=== PATIENT | female | born 1940 | race Caucasian/White ===

== ENCOUNTER 2021-09-21 09:28 | Inpatient (IN) | payer MEDICARE, SELFPAY ==
[2021-09-21] VITALS (85 sets, daily range): BP systolic 105–218; BP diastolic 53–117; PULSE 61–97; RESP 11–36; TEMP 35.8–37; O2SAT 88–96; BMI 19.0; BMI 19.1
--- NOTE | 2021-09-21 09:38 | XR_ITS ---
WS: [id number] CHEST XRAY TECHNIQUE: Portable chest. CLINICAL INFORMATION: chest pain COMPARISON: None. FINDINGS: Heart: Cardiomegaly. Aortic calcification. Lungs: Chronic emphysematous changes. No acute pulmonary infiltrates. Calcified granulomatous disease . Bones: Prior vertebroplasty changes in the mid thoracic spine. Osteopenia. XR/XR chest 1V portable [id number] IMPRESSION: 1. Cardiomegaly. Aortic calcification. 2. Chronic emphysematous changes. No acute pulmonary infiltrates. 3. Chronic granulomatous disease
--- NOTE | 2021-09-21 09:38 | ECG_ITS ---
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 Measurements Intervals [place] Rate: 67 P: 50 GA: 190 QRS: 26 QRSD: 114 T: 42 QT: 435 QTc: 460 Interpretive Statements SINUS RHYTHM INCOMPLETE RIGHT BUNDLE BRANCH BLOCK [90+ ms QRS DURATION, TERMINAL R IN V1/V2, 40+ ms S IN I/aVL/V4/V5/V6] MODERATE ST DEPRESSION [0.05+ mV ST DEPRESSION] Compared to ECG 09/21/2021 10:51:32 No significant changes Electronically Signed On 09-22-2021 9:17:41 CDT by Blaine Bradley M.D. [id number]
--- NOTE | 2021-09-21 09:51 | ED_ITS ---
HPI - Chest Pain General: Chief Complaint: Chest Pain Stated Complaint: chest pain / heaviness Time Seen by Provider: 09/21/21 09:38 Source: patient Mode of arrival: ambulatory History of Present Illness: 81-year-old female presents emergency room with complaint of chest discomfort and heaviness earlier today that resolved. She did not take any aspirin nitro prior to coming in now she is complaining of a headache. When I came to see her in the room she states her primary problem was a headache she refers to come in the frontal area a little bit more on the right than the left no recent trauma patient is on Eliquis and sotalol for atrial fibrillation no falls. She has a chronic cough which the used to think was related to lisinopril that persisted after the lisinopril was stopped she uses dxqs-ank-xemycqf cough cold remedies primarily Mentholatum cough drops. She denies use of any pseudoephedrine or phenylephrine products recently but does not use large amounts of caffeine. No difficulty with vision speech swallowing or gait Pertinent past history: other (Atrial fibrillation) Timing of current episode: constant Onset: during rest Pain location: substernal and left chest Pain radiation: none Quality: heaviness Relieving factors: nothing Associated symptoms: Deny abdominal pain, diaphoresis, dyspnea, fever(s), leg edema, nausea, palpitations, sense of impending doom, syncope or vomiting Treatment prior to arrival: none Review of Systems Const: Denies: fever(s) or diaphoresis ENMT: Denies: throat pain, ear or mastoid pain, nasal discharge or nasal congestion Card: Denies: palpitations or syncope Resp: Denies: dyspnea GI: Denies: abdominal pain, nausea or vomiting : Denies: flank pain, difficulty voiding, dysuria, urinary frequency or urinary urgency Skin/Breast: Denies: rash or pruritus PFS ED PFSH: Medical History Atrial fibrillation Hypertension Social History Smoking and tobacco status: never smoked Alcohol intake: never Physical Exam Const: COMMON NORMALS: no acute distress GENERAL APPEARANCE: cooperative and comfortable ORIENTATION/CONSCIOUSNESS: Yes awake, Yes oriented to person, Yes oriented to place and Yes oriented to time HENMT: COMMON NORMALS: normocephalic, atraumatic and hearing grossly normal bilaterally HEAD & SCALP: normocephalic and atraumatic Neck/C-Spine: COMMON NORMALS: no JVD Lymph: LYMPHATIC: no lymphadenopathy noted and no lymphedema noted Resp: COMMON NORMALS: normal respiratory effort, No retractions, No use of accessory muscles and clear to auscultation bilaterally AUSCULTATION: clear to auscultation bilaterally Cardio: COMMON NORMALS: no JVD, regular rate, regular rhythm and No murmurs present (Cardio) RATE: regular rate RHYTHM: regular rhythm GI: COMMON NORMALS: Soft to palpation and No hepatosplenomegaly present A USCULTATION: Yes normoactive bowel sounds PALPATION: Yes Soft to palpation, No Tenderness to palpation present (GI), No Guarding due to palpation present (GI) and Yes No hepatosplenomegaly present Extremity: COMMON NORMALS: normal to inspection, capillary refill normal, no clubbing, cyanosis or edema, no calf tenderness and no pedal edema Neuro: SENSORIUM/ORIENTATION: Yes oriented to person, Yes oriented to place and Yes oriented to time Skin: COMMON NORMALS: no rashes or lesions noted GENERAL SKIN EXAM: no rashes or lesions noted Course Vital Signs: Vital signs: Vital Signs Temperature 98.6 F 09/21/21 09:44 Pulse Rate 66 09/21/21 17:00 Respiratory Rate 16 09/21/21 17:00 Blood Pressure 139/79 09/21/21 17:00 Pulse Oximetry 90 09/21/21 17:00 MDM - Chest Pain Medical Decision Making Significant delta Trope will admit for NSTEMI she is already on Eliquis discussed with hospitalist orders written Nitropaste initially we considered heparin after discussion with hospitalist we elected just keep her on the Eliquis for now. Blood pressure markedly elevated when she first arrived after treatment is well controlled. Medical Records I reviewed the patient's medical records. Lab Data I reviewed the patient's lab results. : 09/21/21 10:05 09/21/21 11:20 Radiology Impressions Chest X-Ray 09/21/21 09:38 IMPRESSION: 1. Cardiomegaly. Aortic calcification. 2. Chronic emphysematous changes. No acute pulmonary infiltrates. 3. Chronic granulomatous disease Head CT 09/21/21 09:59 IMPRESSION: 1. No evidence of intracranial hemorrhage or mass effect. 2. Mild small vessel changes. Moderate global volume loss. 3. 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 4. 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 5. No acute intracranial findings. Laboratory Results WBC 10.1 10^3/uL (4.0-10.0) H 09/21/21 10:05 RBC 4.23 10^6/uL (4.1-5.3) 09/21/21 10:05 Hgb 14.1 g/dL (11.5-15.3) 09/21/21 10:05 Hct 42.5 % (37.0-47.0) 09/21/21 10:05 MCV 100.5 fl (81-99) H 09/21/21 10:05 MCH 33.3 pg (28.0-34.0) 09/21/21 10:05 MCHC 33.2 g/dL (30.0-36.0) 09/21/21 10:05 RDW 14.9 % (12.1-15.1) 09/21/21 10:05 Plt Count 267 10^3/cmm (130-400) 09/21/21 10:05 MPV 10.6 fL (7.4-10.4) H 09/21/21 10:05 Neut % (Auto) 35.9 % 09/21/21 10:05 Lymph % (Auto) 51.1 % 09/21/21 10:05 [place] % (Auto) 9.5 % 09/21/21 10:05 Eos % (Auto) 2.0 % 09/21/21 10:05 Baso % (Auto) 1.2 % 09/21/21 10:05 Neut # (Auto) 3.65 10^3/uL (1.8-7.7) 09/21/21 10:05 Lymph # (Auto) 5.2 10^3/uL (0.8-4.8) H 09/21/21 10:05 [place] # (Auto) 1.0 10^3/uL (0.2-0.9) H 09/21/21 10:05 Eos # (Auto) 0.2 10^3/uL (0.0-0.8) 09/21/21 10:05 Baso # (Auto) 0.1 10^3/uL (0.0-0.1) 09/21/21 10:05 Nucleated RBC % (auto) 0.3 % 09/21/21 10:05 Nucleated RBCs # 0.0 /100WBC 09/21/21 10:05 PT 15.60 SECONDS (12.1-14.9) H 09/21/21 15:28 INR 1.21 (0.8-1.2) H 09/21/21 15:28 Sodium 138 mmol/L (136-145) 09/21/21 11:20 Potassium 4.0 mmol/L (3.5-5.1) 09/21/21 11:20 Chloride 104 mmol/L (98-107) 09/21/21 11:20 Carbon Dioxide 25 mmol/L (22-29) 09/21/21 11:20 Anion Gap 13.0 (5-19) 09/21/21 11:20 BUN 17 mg/dL (8-23) 09/21/21 11:20 Creatinine 0.7 mg/dL (0.5-0.9) 09/21/21 11:20 GFR Calculation Not Reportable 09/21/21 11:20 Glucose 120 mg/dL (65-115) H 09/21/21 11:20 POC Glucose 106 mg/dL (70-110) 09/21/21 12:39 Calculated Osmolality 289 mOsm/kg (285-295) 09/21/21 11:20 Calcium 9.9 mg/dL (8.5-10.5) 09/21/21 11:20 Total Bilirubin 0.4 mg/dL (0.15-1.2) 09/21/21 11:20 AST 22 U/L (0-32) 09/21/21 11:20 ALT 14 U/L (0-33) 09/21/21 11:20 Alkaline Phosphatase 94 IU/L (35-105) 09/21/21 11:20 Troponin T Baseline 19 ng/L (0-10) H 09/21/21 11:20 Troponin T 120 Minute 41.43 ng/L (0-10) H 09/21/21 13:30 Delta Troponin T 22.43 ABS# (0-10) H* 09/21/21 13:30 Total Protein 6.3 g/dL (6.6-8.7) L 09/21/21 11:20 Albumin 4.3 g/dL (3.5-5.2) 09/21/21 11:20 Globulin 2.0 g/dL (1.3-4.6) 09/21/21 11:20 Discharge Plan Discharge Patient Disposition: Admitted As Inpatient Admit Provider: Silvia Walters Clinical Impression: Non-ST elevation DC (NSTEMI), Hypertension, Atrial fibrillation Condition: Stable Coding Level of Care Code ED Printing Table Hand for Chg Fwd Exam Comprehensive
[2021-09-21] MEDS: aspirin 81 mg Chew Tablet 324 MG PO (09:56)
--- NOTE | 2021-09-21 09:59 | CT_ITS ---
WS: [id number] CT HEAD TECHNIQUE: Noncontrast CT of the head obtained from the skullbase to the vertex. CLINICAL INFORMATION: headache, oral anticoagulants COMPARISON: None. DLP: 743.[address] scans at [facility] use at least one of these dose optimization techniques: automated e xposure control; mA and/or kV adjustment per patient size (includes targeted exams where dose is matc hed to clinical indication); or iterative reconstruction. FINDINGS: No evidence of intracranial hemorrhage or mass effect. Ventricular system and basal cisterns are donato nt. Mild small vessel changes with moderate parenchymal volume loss. Tiny chronic lacunar infarcts RI GHT caudate and RIGHT thalamus. Tiny chronic lacunar infarcts LEFT basal ganglia. Incidental benign c ystic encephalomalacia or neuroepithelial cyst with some peripheral calcification RIGHT posterior tem poral lobe. Measuring 3.1 x 2.6 cm. Vascular calcification. Paranasal sinuses and mastoid air cells are well aerated. .Normal visualized soft tissues. CT/CT head wo con* [id number] IMPRESSION: 1. No evidence of intracranial hemorrhage or mass effect. 2. Mild small vessel changes. Moderate global volume loss. 3. 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 4. Incidental benign cystic encephalomalacia or neuroepithelial cyst RIGHT tem poral lobe measuring 3.1 x 2.6 cm with peripheral calcification. 5. No acute intracranial findings.
[2021-09-21] MEDS: amlodipine 10 mg Tablet PO (10:06)
[2021-09-21] MEDS: hyDRALAzine 20 mg/mL INJ 1 mL IVP (10:07)
[2021-09-21 10:43] LABS: Basophils # 0.1 10^3/uL (0.0-0.1); Basophils % 1.2 %; Eosinophils # 0.2 10^3/uL (0.0-0.8); Hematocrit 42.5 % (37.0-47.0); Hemoglobin 14.1 g/dL (11.5-15.3); Lymphocytes # 5.2 10^3/uL (0.8-4.8); Lymphocytes % 51.1 %; Mean Corpuscular HGB Conc 33.2 g/dL (30.0-36.0); Mean Corpuscular Hemoglobin 33.3 pg (28.0-34.0); Mean Corpuscular Volume 100.5 fl (81-99); Mean Platelet Volume 10.6 fL (7.4-10.4); Monocytes % 9.5 %; Neutrophils # 3.65 10^3/uL (1.8-7.7); Neutrophils % 35.9 %; Nucleated Red Blood Cells % 0.3 %; Platelet Count 267 10^3/cmm (130-400); Red Blood Count 4.23 10^6/uL (4.1-5.3); Red Cell Distribution Width 14.9 % (12.1-15.1); White Blood Count 10.1 10^3/uL (4.0-10.0)
--- NOTE | 2021-09-21 11:38 | ECG_ITS ---
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 Measurements Intervals [place] Rate: 65 P: 53 LA: 201 QRS: 29 QRSD: 94 T: 52 QT: 444 QTc: 463 Interpretive Statements SINUS RHYTHM INCOMPLETE RIGHT BUNDLE BRANCH BLOCK [90+ ms QRS DURATION, TERMINAL R IN V1/V2, 40+ ms S IN I/aVL/V4/V5/V6] MODERATE ST DEPRESSION [0.05+ mV ST DEPRESSION] Compared to ECG 09/21/2021 09:42:56 Incomplete right bundle-branch block now present ST (T wave) deviation still present Electronically Signed On 09-22-2021 9:23:34 CDT by Blaine Bradley M.D. [id number]
[2021-09-21 12:11] LABS: Alanine Aminotransferase 14 U/L (0-33); Albumin Level 4.3 g/dL (3.5-5.2); Alkaline Phosphatase 94 IU/L (35-105); Aspartate Amino Transferase 22 U/L (0-32); Blood Urea Nitrogen 17 mg/dL (8-23); Calcium 9.9 mg/dL (8.5-10.5); Carbon Dioxide 25 mmol/L (22-29); Chloride 104 mmol/L (98-107); Glucose 120 mg/dL (65-115); Osmolality Calculated 289 mOsm/kg (285-295); Sodium 138 mmol/L (136-145); Total Bilirubin 0.4 mg/dL (0.15-1.2); Total Protein 6.3 g/dL (6.6-8.7)
[2021-09-21 12:12] LABS: Troponin(5th) Baseline 19 ng/L (0-10)
[2021-09-21 12:43] LABS: Glucose Point of Care 106 mg/dL (70-110)
[2021-09-21 14:18] LABS: Troponin 5 2HR 41.43 ng/L (0-10)
[2021-09-21 14:33] LABS: Troponin 5 2HR Delta 22.43 ABS# (0-10)
[2021-09-21] MEDS: nitroglycerin 1 gm/inch oint Pkt 0.5 INCH TOPICAL (15:24)
--- NOTE | 2021-09-21 15:38 | ECG_ITS ---
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 Measurements Intervals [place] Rate: 61 P: -5 [place]: 199 QRS: 16 QRSD: 94 T: 2 QT: 436 QTc: 441 Interpretive Statements SINUS RHYTHM POSSIBLE RIGHT VENTRICULAR CONDUCTION DELAY [RSR (QR) IN V1/V2] MODERATE ST DEPRESSION [0.05+ mV ST DEPRESSION] No previous ECG available for comparison Electronically Signed On 09-22-2021 9:23:18 CDT by Blaine Bradley M.D. [email or web address] [email or web address].[email or web address]/store/[id number]
[2021-09-21 16:01] LABS: INR 1.21 (0.8-1.2)
[2021-09-21 18:27] LABS: Troponin 5 6HR 93.91 ng/L (0-10)
--- NOTE | 2021-09-21 18:30 | PM.HP ---
Providers/Chief Complaint Admitting Physician: Silvia Walters MD Chief Complaint: chest pain / heaviness History of Present Illness Zoe Nelson is a 81 year old female who presented to the hospital with chief complaint of chest pain and headache. Patient is stating that she had good night sleep yesterday, she woke up fine in the morning, she went to [facility] in [place] and at that point she started experiencing headache at the crown of her head which she describing as throbbing only lasted for about 1 to 2 minutes and resolved on its own. She never had this kind of headache before. When she drove from [place] to [place], she start experiencing chest pain which she described as pressure-like sensation, it only last for about 30 to 40 seconds and vanished, she was at rest when she experienced first episode, her second episode happened a few minutes later which was same as before, she felt pressure-like sensation which she describing as heaviness, she did not experience fever, shortness of breath, nausea, vomiting or diaphoresis. His pain was not radiating. She denies previous history of AL, CHF. For her A. fib she takes Eliquis and sotalol. In the ER she was diagnosed with NSTEMI, she will be admitted, I will start ACS protocol, CT head unremarkable, chronic lacunar infarcts Benign cyst noted on CT head EKG is not showing significant ST depression, incomplete right bundle branch block, sinus rhythm patient is chest pain-free On arrival her blood pressure was high, diastolic around 100, systolic around 200mmhg, she was given loading dose of aspirin, hydralazine 20 mg IV push, she was started on nitro paste I will give her loading dose of Plavix, will give her chlorthalidone and lisinopril Review of Systems Const: Denies: fever(s) Eyes: Denies: change in vision ENMT: Denies: throat pain Card: Reports: chest pain Resp: Denies: dyspnea GI: Denies: abdominal pain : Denies: flank pain Musc: Denies: neck pain Skin/Breast: Denies: rash Neuro: Denies: headache(s) Psych: Reports: anxiety Endo: Denies: polyuria Antony/Lymph: Denies: easy bruising All/Imm: Denies: urticaria Medications/Allergies Home Medications Medication Instructions Recorded Confirmed Last Taken Type apixaban 5 mg tablet (Eliquis) 5 mg PO BID 09/21/21 09/21/21 09/21/21 05:30 History calcium citrate 315 mg-vitamin D3 1 tab PO DAILY 09/21/21 09/21/21 Unknown History 5 mcg (200 unit) tablet (Calcium Citrate + D) glimepiride 2 mg tablet 1 mg PO DAILY PRN 09/21/21 09/21/21 09/21/21 05:30 History 2mg see pharmacy com magnesium 250 mg tablet 250 mg PO Q7D 09/21/21 09/21/21 09/16/21 History oxdtlfzzcpoj-yuswspuf-scopar 1 tab PO DAILY 09/21/21 09/21/21 Unknown History tablet (Multivitamin 50 Plus) sotalol 80 mg tablet 80 mg PO BID 09/21/21 09/21/21 09/21/21 05:30 History Allergies Allergy/AdvReac Type Severity Reaction Status Date / Time propafenone [From Rythmol] Allergy Unknown Verified 09/21/21 11:43 PFSH Acute PFSH: Medical History Atrial fibrillation Hypertension Surgical History Previous back surgery Family History Other Diabetes Social History Smoking and tobacco status: never smoked Alcohol intake: never Vitals/I&O/Wt Last Vital Signs Temp 98.6 F 09/21/21 09:44 Pulse 68 09/21/21 18:28 Resp 16 09/21/21 17:00 BP 139/79 09/21/21 17:00 Pulse Ox 90 09/21/21 17:00 Weight last 48 hrs Weight 56.88 kg Weight 56.699 kg Physical Exam Narrative: Very pleasant female Chest pain-free S1, S2 sinus rhythm Euvolemic Abdomen soft No audible stridor or wheezing Saturating well Appropriate mood and affect Patient is noted feeling hungry EOMI, PERRLA Nonfocal neuro exam Data : 09/21/21 10:05 09/21/21 11:20 A&P Assessment and plan (1) Hypertensive urgency, malignant: Status: Acute (2) Non-ST elevation AL (NSTEMI): Status: Acute Plan NSTEMI Patient had 2 episode of chest pressure, last for about a few seconds Currently chest pain-free Blood pressure is stable 169/79mmhg EKG not showing significant ischemic or infarctive changes, incomplete bundle branch block with sinus rhythm Significant delta troponin We will start ACS protocol We will give her loading dose of Plavix start lisinopril, We will give her loading dose of Lovenox Hold Eliquis Hypertensive urgency: Check echo in the morning Check TSH Potassium is normal Check mag level CT head unremarkable Add chlorthalidone and lisinopril with mean arterial pressure reduction about 25% in next 6 hours Target blood pressure around 1 30-1 40mmhg for tonight She can be transferred to [facility] Cardiac diet N.p.o. after midnight Stress test in the morning Depending on the stress stress results further medical plan will be made Full code A. fib without RVR currently in sinus rhythm Holding sotalol because of stress test in the morning Diabetes control with Nipride, sliding scale for now check A1c level Attestations Medical Necessity Statement*: Because of NSTEMI, hypertensive urgency she will need more than 2 midnights in the hospital, requiring stress test in the morning as well Time Spent in Patient Care: 40mins Coding Level of Care Code Acute Nylon Mender for Chaparrita Huffman Diagnoses Hypertensive urgency, malignant I16.0 Non-ST elevation AL (NSTEMI) I21.4
--- NOTE | 2021-09-21 18:32 | ECG_ITS ---
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 Interpretive Statements NAME OF STUDY: LEXISCAN SESTAMIBI STRESS TEST INDICATION: Unstable Angina PROCEDURE: At the baseline, the blood pressure was 148/72 mmHg, oxygen saturation 89% with a heart rate of 64 bpm. The electrocardiogram showed normal sinus rhythm, normal axis. RSR'in V1 consider normal variant. Nonspecific ST depression The Lexiscan was infused over a period of 20 seconds. A total of 0.4 milligrams of Lexiscan was infused. The stress phase was continued for a total of 5 minutes. Heart rate at the end of the stress phase was 89 bpm, oxygen saturation 95% with a blood pressure of 127/68 mmHg. The EKG at the peak infusion revealed sinus rhythm at 90 bpm with no significant ST-T wave changes. The study was terminated due to protocol completion. Sestamibi was injected 20 seconds after the Lexiscan infusion. Blood pressure at the end of the recovery phase was 128/68 mmHg, oxygen saturation 95% with a heart rate of 88 beats per minute. CONCLUSION: 1. No significant EKG changes with the LexiScan infusion. 2. No LexiScan induced chest pain or cardiac arrhythmia. 3. Normal blood pressure and heart rate response. 4. Sestamibi/sestamibi perfusion scan pending; see separate report. Electronically Signed On 09-22-2021 12:51:54 CDT by Zuleyka Salazar M.D. [email or web address] [id number]
[2021-09-21 18:37] LABS: Troponin 5 6HR Delta 74.91 ng/L (0-12)
[2021-09-21] MEDS: lisinopril 10 mg Tablet PO (18:51)
[2021-09-21 19:23] LABS: Thyroid Stimulating Hormone 4.38 uIU/mL (0.27-4.20)
[2021-09-21 19:27] LABS: D Dimer 1.51 ug/mIFEU (0-0.59)
[2021-09-21] MEDS: clopidogrel 300 mg Tablet PO (19:57)
[2021-09-21] MEDS: enoxaparin 60 mg/0.6 mL Syringe SUBCUT (19:57)
[2021-09-21] MEDS: atorvastatin 40 mg Tablet 80 MG PO (20:41)
[2021-09-22] VITALS (89 sets, daily range): BP systolic 98–160; BP diastolic 49–91; PULSE 57–97; RESP 8–35; TEMP 36.3–37; O2SAT 85–97
--- NOTE | 2021-09-22 02:52 | USCV_ITS ---
Zoe Nelson Age: 81 Gender: F : 1940 Exam Date: 09/22/2021 03:07 Ordering Phys: Silvia Walters MD Technologist: ELI Exam Location: [facility] [place] Indication: UA BP: 101 / 55 HR: 64 Rhythm: Sinus Technical Quality: Adequate MEASUREMENTS (Male / Female) Normal Values 2D ECHO LV Diastolic Diameter PLAX 2.5 cm 4.2 - 5.9 / 3.9 - 5.3 cm LV Systolic Diameter PLAX 1.8 cm IVS Diastolic Thickness 1.6 cm 0.6 - 1.0 / 0.6 - 0.9 cm IVS Systolic Thickness 2.0 cm LVPW Diastolic Thickness 1.9 cm 0.6 - 1.0 / 0.6 - 0.9 cm LVPW Systolic Thickness 2.1 cm LVOT Diameter 1.8 cm LV Ejection Fraction 2D Teich 60.3 % LV Ejection Fraction MOD 2C 46.6 % LV Ejection Fraction 2C AL 47.0 % LA Diameter 3.7 cm LA Width 2.9 cm LA Height 6.1 cm RA Width 3.8 cm RA Height 5.0 cm Aorta at Sinotubular Diameter 2.1 cm M-MODE Aortic Annulus Diameter 3.1 cm LA Ao Ratio MM 1.5 MV E Point Septal Separation 0.9 cm DOPPLER AV Peak Velocity 92.4 cm/s LVOT Peak Velocity 90.0 cm/s AV Area Cont Eq vti 2.7 cm squared AV Area Cont Eq pk 2.4 cm squared MV Peak Velocity 75.0 cm/s MV Area PHT 2.7 cm squared Mitral E to A Ratio 0.8 MV E' Velocity 31.5 cm/s Mitral E to MV E' Ratio 9.5 Mitral E to LV E' Lateral Ratio 9.4 Mitral E to LV E' Septal Ratio 9.9 TR Peak Velocity 245.3 cm/s TR Peak Gradient 24.1 mmHg TR Mean Velocity 204.8 cm/s TR Mean Gradient 17.8 mmHg TR Velocity Time Integral 70.7 cm Right Atrial Pressure 5.0 mmHg Pulmonary Artery Systolic Pressu 29.1 mmHg PV Peak Velocity 88.0 cm/s RV Acceleration Time 0.1 s RV Ejection Time 0.4 s RV AcT/ET 0.4 FINDINGS Left Ventricle Normal left ventricular size and systolic function, EF 58 %. No regional wall motion abnormalities. Grade I/IV diastolic dysfunction (abnormal relaxation filling pattern), normal to mildly elevated filling pressures. Mild left ventricular hypertrophy. Right Ventricle Mildly increased right ventricular size. Normal right ventricular systolic function. Right Atrium Mildly increased right atrial size. Left Atrium The left atrium is normal in size. Mitral Valve Thickened mitral valve. Aortic Valve Thickened aortic valve. Tricuspid Valve Trace tricuspid valve regurgitation. Pulmonic Valve Pulmonic valve not well visualized. Pericardium Normal pericardium without effusion. Aorta Normal aortic annulus size. CONCLUSIONS Normal left ventricular size and systolic function, EF 58 %. No regional wall motion abnormalities. Grade I/IV diastolic dysfunction (abnormal relaxation filling pattern), normal to mildly elevated filling pressures. Mild left ventricular hypertrophy. Thickened aortic and mitral valves. Mildly dilated right atrium and right ventricle Trace tricuspid valve regurgitation. There is no pericardial effusion. There are no intracardiac masses. No similar previous study is available for comparison. Dr Arielle Mejia MD [facility] (Electronically Signed) Final Date: 23 September 2021 22:04 S
[2021-09-22 04:01] LABS: Basophils # 0.1 10^3/uL (0.0-0.1); Basophils % 1.4 %; Eosinophils # 0.2 10^3/uL (0.0-0.8); Eosinophils % 1.8 %; Hematocrit 39.5 % (37.0-47.0); Hemoglobin 13.2 g/dL (11.5-15.3); Lymphocytes # 4.4 10^3/uL (0.8-4.8); Lymphocytes % 51.8 %; Mean Corpuscular HGB Conc 33.4 g/dL (30.0-36.0); Mean Corpuscular Hemoglobin 33.3 pg (28.0-34.0); Mean Corpuscular Volume 99.7 fl (81-99); Mean Platelet Volume 9.9 fL (7.4-10.4); Monocytes # 0.8 10^3/uL (0.2-0.9); Monocytes % 9.5 %; Neutrophils # 2.96 10^3/uL (1.8-7.7); Nucleated Red Blood Cells % 0.5 %; Platelet Count 259 10^3/cmm (130-400); Red Blood Count 3.96 10^6/uL (4.1-5.3); Red Cell Distribution Width 14.9 % (12.1-15.1); White Blood Count 8.5 10^3/uL (4.0-10.0)
[2021-09-22 04:10] LABS: Estmated Average Glucose 189; Hemoglobin A1C 8.2 % (4.0-6.0)
[2021-09-22 04:16] LABS: Blood Urea Nitrogen 19 mg/dL (8-23); Calcium 9.5 mg/dL (8.5-10.5); Carbon Dioxide 22 mmol/L (22-29); Chloride 104 mmol/L (98-107); Glucose 130 mg/dL (65-115); Magnesium 1.9 mg/dL (1.7-2.3); Osmolality Calculated 288 mOsm/kg (285-295); Sodium 137 mmol/L (136-145)
[2021-09-22] MEDS: enoxaparin 60 mg/0.6 mL Syringe SUBCUT ×2 (07:32→18:37)
--- NOTE | 2021-09-22 08:10 | USCV_ITS ---
Zoe Nelson Age: 81 Gender: F : 1940 Exam Date: 09/22/2021 09:43 Ordering Phys: Silvia Walters MD Technologist: YIFAN Exam Location: [facility] [place] Indication: elevated d dimer PROCEDURES: Venous duplex imaging was performed in bilateral lower extremities. The following venous structures were evaluated: common femoral vein, profunda vein, proximal portion of the greater saphenous vein, superficial femoral vein, and the popliteal vein. In addition, the posterior tibial and peroneal trunk were evaluated. Serial compression, augmentation maneuvers, and spectral Doppler flow evaluation were performed. FINDINGS: No evidence of DVT seen in any vessel visualized at this time. CONCLUSIONS No evidence of right lower extremity DVT. No evidence of left lower extremity DVT. Zack López MD (Electronically Signed) Final Date: 22 September 2021 11:19 S
--- NOTE | 2021-09-22 08:10 | CT_ITS ---
WS: [id number] CTA OF THE CHEST WITH PULMONARY EMBOLISM PROTOCOL TECHNIQUE: High-resolution contrast enhanced CTA of the chest with coronal and sagittal reformatted i mages with pulmonary embolism protocol. MIP images are also reviewed. CLINICAL INFORMATION: after stress test COMPARISON: None. DLP: 418.[address] scans at [facility] use at least one of these dose optimization techniques: automated e xposure control; mA and/or kV adjustment per patient size (includes targeted exams where dose is matc hed to clinical indication); or iterative reconstruction. FINDINGS: Proximal main pulmonary arteries are patent. Enlarged main pulmonary arteries can be seen with pulmon xenia arterial hypertension. Segmental and subsegmental pulmonary arteries appear patent. Normal calibe r thoracic aorta. Moderate aortic atheromatous disease. No mediastinal or hilar lymphadenopathy. No a xillary lymphadenopathy. Normal GE junction. Adrenal glands are normal. Hepatic granulomas. Mild thor acic kyphosis. Moderate chronic emphysematous changes. No focal pneumonia or pleural fluid. No acute pulmonary infil trates. Slight subsegmental atelectasis in the lung bases. A few calcified granulomas. Hazy opacity a long the RIGHT major fissure measuring 8 mm. Vertebroplasty changes in the mid thoracic spine at T8. Mild chronic appearing compression deformity T11 superior endplate. CT/CT angio chest PE protcl [id number] IMPRESSION: 1. No evidence of pulmonary embolus. 2. Enlarged main pulmonary arteries can be seen with pulmonary arterial hypert ension. 3. No acute pulmonary infiltrates. 4. 8mm hazy opacity along the RIGHT major fissure. This can be followed up in [address] 5. No other acute findings.
[2021-09-22 09:02] LABS: Free T4 Free Thyroxine 1.32 ng/dL (0.82-1.77)
[2021-09-22] MEDS: lisinopril 10 mg Tablet PO (09:15)
[2021-09-22] MEDS: aspirin 81 mg EC Tablet PO (09:15)
[2021-09-22] MEDS: clopidogrel 75 mg Tablet PO (09:15)
[2021-09-22] MEDS: regadenoson 0.4 Mg/5 ml Syringe IVP (11:57)
[2021-09-22] MEDS: iohexol 350 mg/mL 100 mL Btl IV (13:02)
--- NOTE | 2021-09-22 13:43 | PM.PN ---
Subjective Subjective: This morning patient was not complaining of any active chest pain Awaiting stress test To finish 48 hours on ACS protocol Patient is willing to stay for 48 hours was at the bedside Updated Requested CTA and venous Doppler because of high D-dimer She is not hypoxic nor tachycardic Vitals/I&O/Wt Last Vital Signs Temp 97.3 F L 09/22/21 11:00 Pulse 75 09/22/21 13:06 Resp 15 09/22/21 13:06 BP 128/68 09/22/21 12:08 Pulse Ox 93 09/22/21 11:30 09/21/21 09/22/21 09/22/21 22:59 06:59 14:59 Intake Total 200 / 200 720 / 720 Balance 200 / 200 720 / 720 Weight last 48 hrs Weight 56.88 kg Weight 56.699 kg Physical Exam Narrative: Patient is euvolemic N.p.o. S1, S2 Saturating well on room air Nonfocal neuro exam Abdomen soft EOMI, PERRLA Data : 09/22/21 03:49 09/22/21 03:49 A&P Assessment and plan (1) Hypertensive urgency, malignant: Status: Acute (2) Non-ST elevation DE (NSTEMI): Status: Acute (3) Atrial fibrillation: Status: Acute (4) Hypertension: Status: Acute Plan NSTEMI: Continue ACS protocol We will follow up with stress test and echo report To finish 48 hours patient will need to stay until tomorrow Secondary to high D-dimer requested venous Doppler and CTA chest Free T4 normal Overnight no events Patient is normotensive today I will discontinue chlorthalidone and only continue lisinopril, start sotalol, A. fib without RVR Currently on therapeutic dose of Lovenox Full code Cardiac diet Attestations Medical Necessity Statement*: Plan to discharge her tomorrow after finishing ACS protocol currently we are waiting for stress test results Time Spent in Patient Care: 20mins Coding Level of Care Code Acute Telegraph Messenger for Chg Fwd Diagnoses Hypertensive urgency, malignant I16.0 Non-ST elevation DE (NSTEMI) I21.4 Atrial fibrillation I48.91 Hypertension I10
--- NOTE | 2021-09-22 18:32 | NMCV_ITS ---
NM cecil perf SPECT r/s* [id number] Counts, Zoe Age: 81 Gender: F : 1940 Exam Date: 09/22/2021 18:32 Ordering Phys: Silvia Walters MD Technologist: YOLANDA Sevilla Exam Location: [facility] Indications: CHEST PAIN STRESS TEST [facility] IMAGE PROTOCOL Rest/Stress 1 Lexiscan Day Radiopharmaceutical Dose (mCi) Administration Site Administered by Rest: Tc-99m 11.0 IV Jazmine Boothe, PANEL GLUER Sestamibi Stress:Tc-99m 32.7 IV Jazmine Boothe, PANEL GLUER Sestamibi Rest: 22-Sep-2021 60 Discovery 630 Stress: 22-Sep-2021 30 Discovery 630 0.4mg Lexiscan. Supine position only as patient was unable to lay prone. SPECT RESULTS Technical Quality: Excellent Raw Data Analysis: Normal Image Corrections: No attenuation or motion correction applied Summed Stress Score: 0 Summed Rest Score: 0 Summed Difference Score: 0 PERFUSION FINDINGS SPECT images demonstrate homogeneous tracer distribution throughout the myocardium. FUNCTIONAL RESULTS (calculated via Gated SPECT) Stress Image LV EF (%): 94 Stress EDV (mL):36 TID: 1.33 Stress ESV (mL):2 FUNCTIONAL FINDINGS: The left ventricle is normal in size. Transient Ischemia Dilatation of 1.3. There is hyperdynamic left ventricular global systolic function. The left ventricular ejection fraction is hyperdynamic with a value of 94%. There is hyperdynamic left ventricular wall thickening with no regional wall motion abnormality. IMPRESSIONS 1. Myocardial perfusion imaging is normal. 2. Overall left ventricular systolic function is normal without regional wall motion abnormalities, LVEF=94%. 3. Transient ischemic dilation index increased at 1.3. This may represent hypertensive response/subendocardial ischemia or multivessel coronary artery disease. Clinical correlation is advised. 4. EKG portion of the study will be reported separately. 5. No prior similar studies to compare. Zuleyka Salzaar MD (Electronically Signed) Final Date: 22 September 2021 14:32 S
[2021-09-22] MEDS: atorvastatin 40 mg Tablet 80 MG PO (20:36)
[2021-09-23] VITALS (25 sets, daily range): BP systolic 108–162; BP diastolic 52–84; PULSE 61–88; RESP 16–27; TEMP 36.3–36.9; O2SAT 89–96
[2021-09-23] MEDS: enoxaparin 60 mg/0.6 mL Syringe SUBCUT (06:06)
--- NOTE | 2021-09-23 07:57 | P.DS_ITS ---
Discharge Providers Date of Admission: 09/21/21 16:15 Date of Discharge: September 23, 2021 Attending Provider at Admission: Silvia Walters MD Attending Provider at Discharge: Silvia Walters MD Diagnoses at Discharge Discharge Diagnosis (1) Hypertensive urgency, malignant: Status: Acute (2) Non-ST elevation TN (NSTEMI): Status: Acute (3) Atrial fibrillation: Status: Acute (4) Hypertension: Status: Acute Reason for Visit Reason for Visit: chest pain / heaviness Hospital Course Hospital Course 81-year-old female was admitted for management evaluation of NSTEMI. She never had any previous diagnosis of TN, CHF or coronary disease. She was diagnosed with hypertensive urgency which improved as soon as we added lisinopril to her regimen. Stress test did not show ischemic changes. EKG without any ischemic or infarctive changes. Significant delta troponin noted at admission. She finished 48 hours on full dose anticoagulating agent Lovenox. At home she takes anticoagulating agent for her A. fib. Patient was counseled on watching her blood pressure, start using lisinopril along her sotalol and anticoagulating agent for A. fib. No signs of pulmonary embolism or DVT. High D-dimer noted. Patient will be discharged home in stable condition. Troponin leak could be related to hypertension. 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 Physical Exam Narrative: Patient is euvolemic N.p.o. S1, S2 Saturating well on room air Nonfocal neuro exam Abdomen soft EOMI, PERRLA Discharge Data Studies Completed and Pending Completed Studies During Hospitalization Category Date Time Status CT head wo con* [id number] Stat Cat Scan 09/21/21 09:59 Completed CTA PE [CT angio chest PE protcl [id number]] Routine Cat Scan 09/22/21 08:10 Completed Sestamibi Stress Test Request Routine Exams 09/21/21 18:32 Completed XR chest 1V portable [id number] Stat Exams 09/21/21 09:38 Completed NM cecil perf SPECT r/s* [id number] Routine Nuc Med 09/22/21 18:32 Completed US venous duplex lower extremity bilat [CV venous Ultrasound 09/22/21 08:10 [place] [id number]] Routine Pending at discharge Category Date Time Status CV. echo complete* [id number] Routine Ultrasound 09/22/21 02:52 Taken Radiology Impressions Chest X-Ray 09/21/21 09:38 IMPRESSION: 1. Cardiomegaly. Aortic calcification. 2. Chronic emphysematous changes. No acute pulmonary infiltrates. 3. Chronic granulomatous disease Head CT 09/21/21 09:59 IMPRESSION: 1. No evidence of intracranial hemorrhage or mass effect. 2. Mild small vessel changes. Moderate global volume loss. 3. 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 4. 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 5. No acute intracranial findings. Chest CTA 09/22/21 08:10 IMPRESSION: 1. No evidence of pulmonary embolus. 2. Enlarged main pulmonary arteries can be seen with pulmonary arterial hypertension. 3. No acute pulmonary infiltrates. 4. 8mm hazy opacity along the RIGHT major fissure. This can be followed up in [address] 5. No other acute findings. Laboratory Results WBC 8.5 10^3/uL (4.0-10.0) 09/22/21 03:49 RBC 3.96 10^6/uL (4.1-5.3) L 09/22/21 03:49 Hgb 13.2 g/dL (11.5-15.3) 09/22/21 03:49 Hct 39.5 % (37.0-47.0) 09/22/21 03:49 MCV 99.7 fl (81-99) H 09/22/21 03:49 MCH 33.3 pg (28.0-34.0) 09/22/21 03:49 MCHC 33.4 g/dL (30.0-36.0) 09/22/21 03:49 RDW 14.9 % (12.1-15.1) 09/22/21 03:49 Plt Count 259 10^3/cmm (130-400) 09/22/21 03:49 MPV 9.9 fL (7.4-10.4) 09/22/21 03:49 Neut % (Auto) 35.0 % 09/22/21 03:49 Lymph % (Auto) 51.8 % 09/22/21 03:49 [place] % (Auto) 9.5 % 09/22/21 03:49 Eos % (Auto) 1.8 % 09/22/21 03:49 Baso % (Auto) 1.4 % 09/22/21 03:49 Neut # (Auto) 2.96 10^3/uL (1.8-7.7) 09/22/21 03:49 Lymph # (Auto) 4.4 10^3/uL (0.8-4.8) 09/22/21 03:49 [place] # (Auto) 0.8 10^3/uL (0.2-0.9) 09/22/21 03:49 Eos # (Auto) 0.2 10^3/uL (0.0-0.8) 09/22/21 03:49 Baso # (Auto) 0.1 10^3/uL (0.0-0.1) 09/22/21 03:49 Nucleated RBC % (auto) 0.5 % 09/22/21 03:49 Nucleated RBCs # 0.0 /100WBC 09/22/21 03:49 PT 15.60 SECONDS (12.1-14.9) H 09/21/21 15:28 INR 1.21 (0.8-1.2) H 09/21/21 15:28 D-Dimer 1.51 ug/mIFEU (0-0.59) H 09/21/21 15:28 Sodium 137 mmol/L (136-145) 09/22/21 03:49 Potassium 4.0 mmol/L (3.5-5.1) 09/22/21 03:49 Chloride 104 mmol/L (98-107) 09/22/21 03:49 Carbon Dioxide 22 mmol/L (22-29) 09/22/21 03:49 Anion Gap 15.0 (5-19) 09/22/21 03:49 BUN 19 mg/dL (8-23) 09/22/21 03:49 Creatinine 0.7 mg/dL (0.5-0.9) 09/22/21 03:49 GFR Calculation Not Reportable 09/22/21 03:49 Glucose 130 mg/dL (65-115) H 09/22/21 03:49 POC Glucose 106 mg/dL (70-110) 09/21/21 12:39 Estimat Average Glucose 189 09/22/21 03:49 Hemoglobin A1c 8.2 % (4.0-6.0) H 09/22/21 03:49 Calculated Osmolality 288 mOsm/kg (285-295) 09/22/21 03:49 Calcium 9.5 mg/dL (8.5-10.5) 09/22/21 03:49 Magnesium 1.9 mg/dL (1.7-2.3) 09/22/21 03:49 Total Bilirubin 0.4 mg/dL (0.15-1.2) 09/21/21 11:20 AST 22 U/L (0-32) 09/21/21 11:20 ALT 14 U/L (0-33) 09/21/21 11:20 Alkaline Phosphatase 94 IU/L (35-105) 09/21/21 11:20 Troponin T Baseline 19 ng/L (0-10) H 09/21/21 11:20 Troponin T 120 Minute 41.43 ng/L (0-10) H 09/21/21 13:30 Delta Troponin T 22.43 ABS# (0-10) H* 09/21/21 13:30 Troponin T Hi Sens 6Hr 93.91 ng/L (0-10) H 09/21/21 17:30 Troponin T Hi Sens 6Hr Delta 74.91 ng/L (0-12) H* 09/21/21 17:30 Total Protein 6.3 g/dL (6.6-8.7) L 09/21/21 11:20 Albumin 4.3 g/dL (3.5-5.2) 09/21/21 11:20 Globulin 2.0 g/dL (1.3-4.6) 09/21/21 11:20 TSH 4.38 uIU/mL (0.27-4.20) H 09/21/21 11:20 Free T4 1.32 ng/dL (0.82-1.77) 09/22/21 03:49 Vitals Last Vital Signs Temp 97.3 F L 09/23/21 01:23 Pulse 68 09/23/21 04:30 Resp 27 H 09/23/21 04:30 BP 137/65 09/23/21 04:30 Pulse Ox 93 09/23/21 04:30 Discharge Plan Discharge Patient Disposition: Home Condition: Stable Prescriptions: New aspirin 81 mg Tablet,Delayed Release (Dr/Ec) 81 mg PO DAILY Qty: 30 0RF atorvastatin 40 mg Tablet 20 mg PO BEDTIME Qty: 30 0RF lisinopril 10 mg Tablet 10 mg PO DAILY Qty: 30 3RF Continued sotalol 80 mg tablet 80 mg PO BID 0RF glimepiride 2 mg tablet 1 mg PO DAILY PRN (Reason: sugar) 0RF magnesium 250 mg Tablet 250 mg PO Q7D 0RF Rx Instructions: on tue Multivitamin 50 Plus Tablet 1 tab PO DAILY 0RF Calcium Citrate + D 315 mg-5 mcg (200 unit) Tablet 1 tab PO DAILY 0RF Eliquis 5 mg tablet 5 mg PO BID 0RF Discharge Orders: Discharge Order (Routine); Ordered 09/23/21 Ordered By: Silvia Walters Discharge Diet: Cardiac Discharge Activity: Increase activity as tolerated Patient Instructions: Lisinopril (By mouth), Aspirin (By mouth), Atorvastatin (By mouth) (Lipitor), Heart Attack (DC), A-fib (Atrial Fibrillation) (DC), Heart Healthy Diet (DC), Hypertension (DC), Opioid Safety Activity Restrictions/Additional Instructions: FOR FOLLOW UP APPOINTMENT , WILL SEE CUSTOMER GREETER NURSE FOR THIS APPOINTMENT FROM [facility] [phone] , YOUR FOLLOW UP APPOINTMENT AT [facility] [phone] GREG DURAN MD/REAGAN ROD NURSE PRACTICIONER OCTOBER 01, AT TIME OF 10:30 AM , YOU ALSO HAVE AND APPOINTMENT WITH A RECRUITING OPERATIONS CONSULTANT ON Tuesday AT TIME OF 08:[address]MATT BATRES AT SAME CLINIC FOR TIME OF 09:30 AM September , AND THEN SEE ABOVE FOR NURSE PRACTICIONER REAGAN ROD AT 10:30 AM SAME DAY Discharge Attestations Time Spent in Discharge Care*: less than 30 min Quality Metrics Clinical Quality Measures [ No reported AMI, CVA or VTE this stay] Coding Level of Care Code Acute Chg FW DC note Diagnoses Hypertensive urgency, malignant I16.0 Non-ST elevation TN (NSTEMI) I21.4 Atrial fibrillation I48.91 Hypertension I10
[2021-09-23] MEDS: clopidogrel 75 mg Tablet PO (10:25)
[2021-09-23] MEDS: aspirin 81 mg EC Tablet PO (10:25)
[2021-09-23] MEDS: lisinopril 10 mg Tablet PO (10:25)
--- NOTE | 2021-09-23 11:24 | PC.NURSE ---
Discharged patient. IV's removed and intact. Medications sent to [facility] in [place]. Education information reviewed with the patient and patient signature form was signed. [employer] assisted patient and spouse to private vehicle via wheelchair.
== END 2021-09-23 11:41 | disposition home or self-care (01) | DRG 282 ==
LOC: ER 16:38 → ICU 17:19
PROVIDERS: Admitting Provider Internal Medicine; Emergency Provider Family Medicine; Visit Provider Internal Medicine
DX: I21.4 Non-ST elevation (NSTEMI) myocardial infarction (principal); I16.0 Hypertensive urgency; I48.91 Unspecified atrial fibrillation; I10 Essential (primary) hypertension; Z86.73 Personal history of transient ischemic attack (TIA), and cerebral infarction without residual deficits; Z79.01 Long term (current) use of anticoagulants
CPT/HCPCS: 36415; 36416; 70450; 71045; 71275; 78452; 80048; 80053; 82962; 83036; 83735; 84439; 84443; 84484; 85025; 85378; 85610; 93005; 93017; 93306; 93970; 96372; 96374; 96375; 99285; A9500; J0360; J1650; J2785; Q9967